=== PATIENT | female | born 1950 | race Caucasian/White ===

== ENCOUNTER 2023-09-11 10:04 | Emergency (ER) | payer MEDICARE, SELFPAY ==
--- NOTE | ~2023-09-11 | XR_ITS ---
EXAMINATION: XR forearm RT 2V DATE: 09/11/2023 10:23 INDICATION: Right forearm dog bite. TECHNIQUE: 2 views of right forearm were obtained. COMPARISON: None. FINDINGS: Bone alignment is normal. No fracture. There is mild osteoarthritis of first carpometacarpa l joint. 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 No elbow joint effusion. IMPRESSION: 1. No fracture or radiopaque foreign body. Reviewed, dictated and finalized at location A.
[2023-09-11 10:08] VITALS: BP 196/96; PULSE 86; RESP 20; TEMP 36.5; O2SAT 97
--- NOTE | 2023-09-11 10:12 | ED.ANIMALBIT ---
HPI - Animal Bite General Chief Complaint: Animal Bite <Gela Hoskins PA-C - Last Filed: 09/11/23 11:57> Stated Complaint: dog bite <NANCIE Valdovinos Last Filed: 09/11/23 11:57> Time Seen by Provider: 09/11/23 10:06 <Gela Hoskins PA-C - Last Filed: 09/11/23 11:57> History of Present Illness HPI narrative: 73-year-old female presents to emergency department for a dog bite to right forearm that occurred just prior to arrival. Patient states she was at a dog park when another dog the dog park bit her. States she was told by the otr owner operator truck driver that the dog is up-to-date on vaccines. She presents with 3 puncture wounds to her right forearm. Last Tdap unknown. Bleeding controlled. <NANCIE Valdovinos Last Filed: 09/11/23 11:57> Related Data Allergies/Adverse Reactions: Allergies Allergy/AdvReac Type Severity Reaction Status Date / Time No Known Allergies Allergy Mild Verified 09/11/23 10:11 <NANCIE Valdovinos Last Filed: 09/11/23 11:57> Review of Systems Review of Systems: CONSTITUTIONAL: Denies fever, chills, or sweats. EYES: Denies visual changes, redness, or discharge. ENT: Denies rhinorrhea, congestion, sore throat, or otalgia. CARDIOVASCULAR: Denies chest pain, palpitations, or edema. RESPIRATORY: Denies cough or dyspnea. GASTROINTESTINAL: Denies abdominal pain, nausea, vomiting, or diarrhea. GENITOURINARY: Denies dysuria or hematuria. SKIN: See HPI MUSCULOSKELETAL: Denies back pain, joint pain, or myalgia. NEUROLOGIC: Denies headache, numbness, or weakness. PSYCHIATRIC: Denies anxiety or depression. <NANCIE Valdovinos Last Filed: 09/11/23 11:57> Exam Narrative: GENERAL: Well-appearing, well-nourished, and in no acute distress. HEAD: Normocephalic, atraumatic. ENT: Nares clear, no rhinorrhea or epistaxis. Mucous membranes moist. NECK: Supple. CHEST: Clear to auscultation. No respiratory distress. HEART: Regular rate and rhythm. No murmur heard. Normal peripheral pulses. ABDOMEN: Soft, nontender, nondistended, normal active bowel sounds. EXTREMITIES: Normal range of motion. Right upper extremity ulnar, radial and median nerves intact. Radial pulse 2 +. Sensation intact. SKIN: 3 puncture wounds/lacerations to the volar aspect of the proximal right forearm, largest laceration is approximately 1.5 cm, 2nd largest is about 1 cm, 3rd is 0.5cm puncture wound. Bleeding controlled. Exposed adipose tissue, otherwise no deep structures or foreign bodies. Compartments are soft NEURO: No focal deficits. 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 <Shanna Arzate MD - Last Filed: 09/11/23 13:22> Vital Signs Vital signs: Vital Signs Temperature 97.7 F 09/11/23 10:08 Pulse Rate 86 09/11/23 10:08 Respiratory Rate 20 09/11/23 10:08 Blood Pressure 196/96 H 09/11/23 10:08 Pulse Oximetry 97 09/11/23 10:08 Oxygen Delivery Room Air 09/11/23 10:08 Temperature 97.7 F 09/11/23 10:08 Pulse Rate 86 09/11/23 10:08 Respiratory Rate 20 09/11/23 10:08 Blood Pressure 196/96 H 09/11/23 10:08 Pulse Oximetry 97 09/11/23 10:08 Oxygen Delivery Room Air 09/11/23 10:08 <Gela Hoskins PA-C - Last Filed: 09/11/23 11:57> Vital Signs Temperature 97.7 F 09/11/23 10:08 Pulse Rate 86 09/11/23 10:08 Respiratory Rate 20 09/11/23 10:08 Blood Pressure 196/96 H 09/11/23 10:08 Pulse Oximetry 97 09/11/23 10:08 Oxygen Delivery Room Air 09/11/23 10:08 Temperature 97.7 F 09/11/23 10:08 Pulse Rate 86 09/11/23 10:08 Respiratory Rate 20 09/11/23 10:08 Blood Pressure 196/96 H 09/11/23 10:08 Pulse Oximetry 97 09/11/23 10:08 Oxygen Delivery Room Air 09/11/23 10:08 <Shanna Arzate MD - Last Filed: 09/11/23 13:22>
[2023-09-11] MEDS: AMOXICILLIN/CLAVULANATE K 875-125 MG TAB 1 TABLET PO (10:20)
[2023-09-11] MEDS: TETANUS,DIPHTHERIA,AC PERTUSSIS ADULT (0.5 ML) BOOSTRIX IM (10:20)
[2023-09-11] MEDS: ACETAMINOPHEN 500 MG TABLET 1000 MG PO (10:29)
[2023-09-11] MEDS: POVIDONE-IODINE 10% SOLUTION 118 ML BOTTLE 10 ML TOPICAL (10:29)
== END 2023-09-11 12:09 | disposition home or self-care (01) ==
PROVIDERS: Emergency Provider Physician Assistant; PCP Internal Medicine
DX: S51.851A Open bite of right forearm, initial encounter (principal); W54.0XXA Bitten by dog, initial encounter; Z23 Encounter for immunization
CPT/HCPCS: 12002; 73090; 90471; 90715; 99283; A9270; J7040

== ENCOUNTER 2024-07-31 16:07 | Emergency (ER) | payer MEDICARE, SELFPAY ==
--- NOTE | ~2024-07-31 | XR_ITS ---
XR shoulder RT min 2V Ordering provider: Gela Hoskins PA-C History: . fall . Comparison: None. FINDINGS: BONES: Fracture of the surgical neck of the right humerus extending to the humeral head. Bony fragmen t is projected over the joint space superiorly.. JOINT SPACES: The acromioclavicular joint is normal. The glenohumeral joint is normal. SOFT TISSUES: Normal. IMPRESSION: Fracture of the surgical neck of the right humerus with extension to the humeral head. Reviewed, dictated and finalized at location A. IMPRESSION: Fracture of the surgical neck of the right humerus with extension to the moises l head.
[2024-07-31 16:25] VITALS: BP 169/85; PULSE 73; RESP 16; TEMP 36.3; O2SAT 100
--- NOTE | 2024-07-31 18:10 | ED_ITS ---
HPI - Extremity Injury (Upper) General Chief Complaint: Extremity Injury, Upper Stated Complaint: Right upper arm pain after falling Time Seen by Provider: 07/31/24 17:40 History of Present Illness HPI narrative: 74-year-old female presents to emergency department for for right shoulder pain after a ground level mechanical fall that occurred this afternoon. Patient states she was walking her dog when she tripped over curb and her dog pulled her forward, causing her to fall and land on her right shoulder. She did not hit her head or lose consciousness. She presents with the an abrasion to her left knee and pain to her right shoulder. Her Tdap is up-to-date. She denies neck pain, back pain or other injuries acquired. She is not anticoagulated but does take a daily baby aspirin. Related Data Allergies Allergy/AdvReac Type Severity Reaction Status Date / Time No Known Allergies Allergy Mild Verified 07/31/24 16:08 Review of Systems Review of Systems: All systems reviewed & are unremarkable except as noted in HPI and below Exam Narrative: GENERAL: Well-appearing, well-nourished, and in no acute distress. HEAD: Normocephalic, atraumatic. EYES: PERRLA and EOMI. ENT: Nares clear, no rhinorrhea or epistaxis. Mucous membranes moist. NECK: No midline cervical spinous tenderness, crepitus, step-offs or deformities BACK: No midline thoracolumbar spinous tenderness, crepitus, step-offs or deformities CHEST: Clear to auscultation. No respiratory distress. HEART: Regular rate and rhythm. No murmur heard. Normal peripheral pulses. ABDOMEN: Soft, nontender, nondistended, normal active bowel sounds. EXTREMITIES: Superficial abrasion to the left knee with no active bleeding, minimal surrounding ecchymosis, no bony tenderness with full active and passive range of motion of knee, DP pulse 2 +, sensation intact. No tenderness to right lower extremity. Edema and tenderness to the right proximal humerus with limited passive and active range of motion secondary to pain. No tenderness remainder of right upper extremity, radial pulse 2 +, sensation intact, radial, median ulnar and axillary nerves are intact. SKIN: Warm, dry, no rash. NEURO: No focal deficits. Alert and oriented x4 Course Vital Signs Vital signs: Vital Signs Temperature 97.4 F L 07/31/24 16:25 Pulse Rate 73 07/31/24 16:25 Respiratory Rate 16 07/31/24 16:25 Blood Pressure 169/85 H 07/31/24 16:25 Pulse Oximetry 100 07/31/24 16:25 Oxygen Delivery Room Air 07/31/24 16:25 Temperature 97.4 F L 07/31/24 16:25 Pulse Rate 73 07/31/24 16:25 Respiratory Rate 16 07/31/24 16:25 Blood Pressure 169/85 H 07/31/24 16:25 Pulse Oximetry 100 07/31/24 16:25 Oxygen Delivery Room Air 07/31/24 16:25 MDM - Extremity Injury (Upper) MDM Narrative Medical decision making narrative: 74-year-old female presents emergency department for right shoulder pain after ground level mechanical fall that occurred this afternoon. Patient did not hit her head or lose consciousness. See HPI for further history. Vitals with elevated blood pressure 169/85, otherwise unremarkable. Exam is notable for the above. Patient is neurovascularly intact. X-ray of the shoulder shows a fracture of the surgical neck of the right humerus with extension to the humeral head. Consulted orthopedist, Dr. Sewell, who agrees to shoulder immobilizer and outpatient follow up. Patient received [place] in the ED, [place] sent to pharmacy. Discussed strict ED return precautions. She and her daughter at bedside are agreeable with the plan verbalized understanding. Discharged in stable condition. shoulder immobilizer Discharge Plan Discharge Clinical Impression: Closed fracture of neck of right humerus Patient Disposition: Home Condition: Stable Instructions: Antibiotic Form, Arm Fracture in Adults (ED) Additional Instructions: You were evaluated in the emergency department for shoulder pain after a fall. X-ray of her shoulder shows a fracture of the surgical neck of the right humerus with extension to the humeral head. Please wear the shoulder immobilizer and follow-up closely with orthopedist. Take the [place] as needed for pain. Return to the emergency department if he develops significantly worsening pain, numbness to your arm, or other concerning symptoms. Patient Language: Portuguese Prescriptions: New hydrocodone-acetaminophen 5-325 mg tablet 1 tablet PO Q8H PRN (Reason: pain) Qty: 14 0RF No Action amoxicillin-pot clavulanate 875-125 mg tablet 1 tablet PO Q12H Qty: 14 0RF acetaminophen 500 mg capsule 1,000 mg PO Q6H PRN (Reason: pain) Qty: 20 0RF Follow-up/Referrals: Marcelo Sewell MD [Physician] - Aman Gomez MD [Primary Care Provider] -
[2024-07-31] MEDS: HYDROcodone/acetaminophen (*CRX) 5-325 MG TABLET 1 TAB PO (18:33)
[2024-07-31 19:57] VITALS: BP 162/70; PULSE 80; RESP 20; TEMP 36.9; O2SAT 99
== END 2024-07-31 20:00 | disposition home or self-care (01) ==
PROVIDERS: Emergency Provider Physician Assistant; PCP Internal Medicine
DX: S42.211A Unspecified displaced fracture of surgical neck of right humerus, initial encounter for closed fracture (principal); Z79.82 Long term (current) use of aspirin; W10.1XXA Fall (on)(from) sidewalk curb, initial encounter; Y93.K1 Activity, walking an animal
CPT/HCPCS: 73030; 99284; A4565; A9270

== ENCOUNTER 2024-08-13 09:56 | Outpatient (CLI) | payer MEDICARE, SELFPAY ==
--- NOTE | ~2024-08-13 | MR_ITS ---
MRI of the right shoulder Technique: Axial proton-density fat-sat images, coronal proton density fat-sat and T2 fat-sat images, and sagittal T1-weighted and T2 fat-sat images were acquired. Clinical History: Pain Findings: No significant degenerative change at the AC joint. Cortical clavicular, coracoacromial, an d coracohumeral ligaments are intact. Supraspinatus and infraspinatus tendons are intact with mild tendinosis or possibly contusive change. Subscapularis tendon intact with severe tendinosis. Tendon of long head of the biceps is intact with intra-articular severe tendinosis. There is a comminuted mildly displaced fracture involving the surgical neck of the proximal humerus a nd extending into the humeral head with extension to the superior aspect of the humeral head. There a re 3 major fracture fragments present. There is extensive marrow edema about the proximal humerus rel ated to the fracture. Prominent inferomedial humeral head osteophyte present, with moderate chondral thinning at the superior glenoid. There is probable superior labral tear extending to the anterosuperior and posterior superior portion s. Inferior glenohumeral ligament is intact. There is a small glenohumeral joint effusion. There is mini mal fluid in the subacromial/subdeltoid bursa. No muscle atrophy evident. There is mild edematous haydee nge of the teres minor muscle. Impression: Acute comminuted minimally displaced fracture of the surgical neck of the humerus and humeral head, a s detailed above. Probable degenerative SLAP tear of the labrum. Mild to moderate degenerative change of the glenohumeral joint. Rotator cuff tendinosis without partial or full-thickness tear. Reviewed, dictated and finalized at location . Impression: Acute comminuted minimally displaced fracture of the surgical neck of the humer us and humeral head, as detailed above. Probable degenerative SLAP tear of the labrum. Mild to moderate degenerative change of the glenohumeral joint. Rotator cuff tendinosis without partial or full-thickness tear.
== END 2024-08-13 09:57 | disposition home or self-care (01) ==
LOC: MICIMG 09:57
PROVIDERS: PCP Orthopaedic Surgery; Visit Provider Orthopaedic Surgery
DX: S42.211A Unspecified displaced fracture of surgical neck of right humerus, initial encounter for closed fracture (principal); S42.291A Other displaced fracture of upper end of right humerus, initial encounter for closed fracture; X58.XXXA Exposure to other specified factors, initial encounter
CPT/HCPCS: 73221

== ENCOUNTER 2024-10-29 13:30 | Outpatient (RCR) | payer MEDICARE, SELFPAY ==
--- NOTE | 2024-09-29 16:55 | OPREHPOC ---
Outpatient Therapy Plan of Care This is a Multidisciplinary Plan of Care that may contain components documented by all disciplines (PT, OT, and ST.) PT Problem 1 PT Problem #1 Knowledge Deficit PT Goal 1 Goal / Goal Update Patient to demonstrate independence with HEP for improved self-reliance of symptom management. Target Visit 4 PT Problem 2 PT Problem #2 Impaired Strength PT Goal 1 Goal / Goal Update Pt. to improve R shoudler strength 4/5 for improved stability required for ADLs. Target Visit 8 PT Problem 3 PT Problem #3 Impaired Range of Motion PT Goal 1 Goal / Goal Update 1. Pt to demonstrate an increase of R shoulder flexion active ROM of 0-130 deg to improve the ability to reach overhead to put clothes on her clothesline. 2. Pt. to demonstrate an increase of R shoulder internal functional reach to T12 to improve her ability to wash her back. 3. Pt. to demonstrate an increase of R shoulder external functional reach to T1 to improve her ability to wash her hair. Target Visit 8 PT Problem 4 PT Problem #4 Pain PT Goal 1 Goal / Goal Update Patient to decrease subjective reports of pain to <1/10 with overhead mobility for improved ADL tolerance. Target Visit 8
--- NOTE | 2024-09-29 16:55 | PTOPEVAL1 ---
Assessment and note entered by Asia Alcantara, PT Evaluation Information Assessment Status Evaluation Diagnosis R shoulder pain ICD-10 Condition Codes (PT) Pain in right shoulder M25.511 Onset 07/31/24 Subjective Information Pt was letting her dog into the park and he pulled her off balance. She fell on an outstretched hand which resulted in a R proximal humerus fracture. She is 8 weeks out from the injury and she thinks she is getting better each day. She was in a sling for 2 weeks after the fall. She went to her MD last week with follow up Xrays noting proper healing. She reports having pain and difficulties with reaching overhead, out to the side, and washing her hair. She notes driving with her R hand is getting better but it still causes pain when turning to the left. Pt. is R handed. Reported Pain Level Pain Score 0: Self Report Assessment PT Clinical Summary Pt is a 74 year old female who presents to physical therapy with a primary complaint of R shoulder pain since 07/31/24. Pt demonstrates shoulder girdle weakness, pain with overhead reaching, decreased mobility, upper trapezius compensations and abnormal mobility patterns that limit their ability to perform ADLs. Pt will benefit from skilled physical therapy to address the above listed deficits and return to PLOF. HEP instructed and written handout provided, EX tolerated well with no adverse effects to note post-session. Pt was educated on importance of adherence to HEP. Pt was also educated on anatomy, prognosis, home modalities, and PT POC. Plan of Care Interventions Electrical Stimulation,Hot Pack/Cold Pack,Manual Therapy,Neuro Re-education,Therapeutic Activities, Therapeutic Exercise,Ultrasound PT Services Indicated Yes Treatment Frequency and 2x/wk for 8 visits Duration These treatments will address the objective and functional deficits as defined above. The patient will be advanced safely and appropriately in order for the patient to progress towards his/her prior level of function. Additional exercises will be introduced and as well as a comprehensive home exercise program upon discharge, if needed, ?to ensure carryover of functional gains achieved in the clinic. This treatment plan has been reviewed and agreement upon by the patient.
--- NOTE | 2024-10-29 14:10 | OPREHPOC ---
Outpatient Therapy Plan of Care This is a Multidisciplinary Plan of Care that may contain components documented by all disciplines (PT, OT, and ST.) PT Problem 1 PT Problem #1 Knowledge Deficit PT Goal 1 Goal / Goal Update Patient to demonstrate independence with HEP for improved self-reliance of symptom management. 25 d/c goal met Target Visit 4 Progress Met PT Problem 2 PT Problem #2 Impaired Strength PT Goal 1 Goal / Goal Update Pt. to improve R shoudler strength 4/5 for improved stability required for ADLs. 25 d/c goal met Target Visit 8 Progress Met PT Problem 3 PT Problem #3 Impaired Range of Motion PT Goal 1 Goal / Goal Update 1. Pt to demonstrate an increase of R shoulder flexion active ROM of 0-130 deg to improve the ability to reach overhead to put clothes on her clothesline. 2. Pt. to demonstrate an increase of R shoulder internal functional reach to T12 to improve her ability to wash her back. 3. Pt. to demonstrate an increase of R shoulder external functional reach to T1 to improve her ability to wash her hair. 25 d/c goals were not met: flexion to 120': IR to waist, ER palm to side of head Target Visit 8 Progress Not Met PT Problem 4 PT Problem #4 Pain PT Goal 1 Goal / Goal Update Patient to decrease subjective reports of pain to <1/10 with overhead mobility for improved ADL tolerance. 25 d/c goal met Target Visit 8 Progress Met
--- NOTE | 2024-10-29 14:10 | PTOPDC ---
Assessment and note entered by Adilia Messina, PT Assessment Status Discharge Diagnosis R shoulder pain ICD-10 Condition Codes (PT) Pain in right shoulder M25.511 Onset 07/31/24 Subjective Information doing good; able to use my arm and doing everything I used to do; saw the dr yesterday and was dismissed from him. doing all the exercises at home and will continue with them. Reported Pain Level Pain Score 0: Self Report Additional Pain Score Comments no pain in the past week with arm and doing all home tasks Assessment PT Clinical Summary Sonia has received 8 PT sessions. Today, reports no pain in her R shoulder and doing all of her self care and in home tasks; self assessment with Quick DASH rating of 3% limitation in activity level; gross strength of R shoulder is 4/5 in her available ROM; education for HEP. active ROM of R shoulder: flexion 120', abduction 110', ER- reaching to back of her head, palm to behind ear and IR- reach behind back, palm to waist. The goals were partially achieved. Discharge PT. She is to continue with her HEP and progress activity and lifting with R arm as tolerated. Plan of Care PT Services Indicated No
== END 2024-10-29 15:13 | disposition home or self-care (01) ==
LOC: ANHPT 13:30
PROVIDERS: PCP Internal Medicine; Visit Provider Orthopaedic Surgery
DX: S42.91XA Fracture of right shoulder girdle, part unspecified, initial encounter for closed fracture (principal)
CPT/HCPCS: 97110; 97112; 97140; 97161; 97530